=== PATIENT | male | born 1985 | race Native Hawaiian/Other Pacific Islander ===

== ENCOUNTER 2020-08-20 11:58 | Emergency (ER) | payer BC ==
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
--- NOTE | 2020-08-20 13:02 | XRAY Report ---
PROCEDURE: Chest 2 View X-Ray INDICATIONS: dyspnea for a week TECHNIQUE: 2 view(s) of the chest. COMPARISON: None. FINDINGS: Surgical changes and devices: None. Lungs and pleura: No pleural effusions or pneumothorax. Lungs are clear. Mediastinum: Mediastinal contours are normal. Heart size is normal. Bones and chest wall: No suspicious bony abnormalities. Soft tissues appear unremarkable. IMPRESSION: No acute process. Reviewed by: Chavez Amanda MD on 08/20/2020 1:00 PM [facility] Approved by: Chavez Amanda MD on 08/20/2020 1:00 PM [facility] Station ID: [id number]
[2020-08-20 13:31] LABS: BASOPHILS % (AUTO) 0.6 %; EOSINOPHILS % (AUTO) 0.6 %; HGB - HEMOGLOBIN 15.6 g/dL (14.0-18.0); LYMPHOCYTES % (AUTO) 31.4 %; MEAN CORPUSCULAR HEMOGLOBIN 31.2 pg (27.0-31.0); MEAN CORPUSCULAR HGB CONC 34.2 g/dL (32.0-36.0); MEAN CORPUSCULAR VOLUME 91.2 fL (80.0-94.0); MEAN PLATELET VOLUME 9.9 fL (7.4-11.4); MONOCYTES # (AUTO) 0.3 10^3/uL (0.0-1.0); MONOCYTES % (AUTO) 4.5 %; NEUTROPHILS % (AUTO) 62.3 %; PLT - PLATELET COUNT 278 10^3/uL (130-450); RED CELL DISTRIBUTION WIDTH 12.3 % (12.0-15.0); WHITE BLOOD COUNT 6.4 x10^3/uL (4.8-10.8)
[2020-08-20 13:51] LABS: CALCIUM 9.3 mg/dL (8.5-10.3); CREATININE 0.9 mg/dL (0.6-1.2)
[2020-08-20] MEDS ORDERED: CHERRY SYRUP 10 ML UDC PO ONE (14:47)
[2020-08-20] MEDS ORDERED: DEXAMETHASONE 10 MG/ML VIAL PO STA (14:47)
[2020-08-20 15:05] VITALS: BP 129/92
== END 2020-08-20 15:04 | disposition home or self-care (01) ==
LOC: ED 11:58
DX: R06.09 Other forms of dyspnea (principal); I45.10 Unspecified right bundle-branch block; R00.1 Bradycardia, unspecified
CPT/HCPCS: 36415; 71046; 80048; 84484; 85025; 93005; 99284; A9270